=== PATIENT | female | born 1995 | race African-American/Black ===

== ENCOUNTER 2016-06-17 15:01 | Emergency (ER) | payer OTHER ==
[2016-06-17 15:15] VITALS: BP 133/90; BMI 54.6
[2016-06-17] MEDS ORDERED: ZITHROMAX TAB 250 MG PO ONE ×2 (15:47→15:51)
[2016-06-17] MEDS ORDERED: ROCEPHIN VIAL 250 MG IM ONE (15:47)
[2016-06-17] MEDS ORDERED: ROCEPHIN VIAL 250 MG ONE (15:47)
--- NOTE | 2016-06-17 15:47 | DR.GENAD ---
HPI - PCP Primary Care Physician: SANIA - HPI Comment HPI Comment: HISTORY BELOW. - Complaint/Symptoms Chief Complaint Doctors Comments: PATIENT WAS EXPOSUSE TO STD 2 WEEKS AGO. DENIES DISCHARGE OR SORES IN THE GENITAL AREA. HAD UNPROTED SEX WITH A PERSON DIAGNOSE WITH STD. Chief Complaint:: PATIENT STATES THAT SHE WANTS TO BE CHECKED FOR STDs. PATIENT DENIES ANY VAGINAL DISCHARGE OR SORES. - Nurses notes reviewed Nurses Notes Review: Yes - Source History Provided: Patient - Mode of Arrival Mode of Arrival: Ambulatory - Timing Onset of Chief Complaint: 06/17/16 Came on: Suddenly - Duration Duration: Constant Duration: Days PMH - PMH Past Medical History: No Past Surgical History: No - Family History History of Family Medical Conditions: Yes Family Medical History: Diabetes Mellitus, Coronary Artery Disease, Hypertension - Social History Does patient currently use any type of tobacco product: Yes Have you used tobacco products in the last 12 months: Yes Type of Tobacco Use: Cigars Does any household member use tobacco: No Alcohol Use: Occasionally Do you use any recreational Drugs:: No Lives With: Family Lives Where: Home - infectious screening In the last 2 months have you had wt loss of >10#?: NO Have you had fever, night sweats or hemotysis?: No Have you traveled outside the country in the last 6 months?: No Isolation: Standard ROS - Review of Systems Constitutional: No Symptoms Reported Eyes: No Symptoms Reported ENTM: No Symptoms Reported Respiratoy: No Symptoms Reported Cardiovascular: No Symptoms Reported Gastrointestinal/Abdominal: No Symptoms Reported Genitourinary: No Symptoms Reported, Other (EXPOSURE TO STD) Neurological: No Symptoms Reported Musculoskeletal: No Symptoms Reported Integumentary: No Symptoms Reported Hematologic/Lymphatic: No Symptoms Reported Endocrine: No Symptoms Reported All Other Systems: Reviewed and Negative PE - Vital Signs Vitals: Temperature 98.1 F Pulse Rate 81 Respiratory Rate 16 Blood Pressure 133/90 O2 Sat by Pulse Oximetry 100 - General Limitations: No Limitations General Appearance: Alert - Head Head Exam: Normal Inspection - Eyes Eye exam: Normal Appearance - ENT ENT Exam: Normal External Ear Exam External Ear Exam: Normal External Inspection TM/Canal Exam: Bilateral Normal Nose Exam: Normal Nose Exam Mouth Exam: Normal Inspection Throat Exam: Normal Inspection - Neck Neck Exam: Trachea Midline - Chest Chest Inspection: Symmetric Chest Wall Rise - Respiratory Respiratory Exam: Normal Lung Sounds Bilat Respiratory Exam: Bilateral Clear to Auscultation - Cardiovascular Cardiovascular Exam: Regular Rate, Normal Rhythm, Normal Heart Sounds - Abdominal Exam Abdominal Exam: Normal Bowel Sounds, Soft. negative: Tenderness - Extremities Extremities Exam: Normal Inspection - Back Back Exam: Normal Inspection - Neurologic Neurological Exam: Alert, Oriented X3 - Psychiatric Psychiatric Exam: Anxious - Skin Skin Exam: Normal Color MDM - Differential Diagnosis Differential Diagnosis: STD EXPOSURE Course - Treatment Treatment: SEE ORDERS - Education/Counseling Education/Counseling: Patient, Education Educated On: Treatment, Diagnosis, Needs for Follow Up ROR - Labs Reviewed Laboratory Results Reviewed?: Yes Laboratory: Specimen Type Clean catch urine 06/17/16 15:49 Urine Color Yellow (YELLOW) 06/17/16 15:49 Urine Appearance Hazy (CLEAR) 06/17/16 15:49 Urine pH 6.5 (5.0 - 8.0) 06/17/16 15:49 Ur Specific [place] 1.015 (1.000-1.030) 06/17/16 15:49 Urine Protein Negative (NEGATIVE) 06/17/16 15:49 Urine Glucose (UA) Negative (NEGATIVE) 06/17/16 15:49 Urine Ketones Negative (NEGATIVE) 06/17/16 15:49 Urine Occult Blood 1+ (NEGATIVE) 06/17/16 15:49 Urine Nitrite Negative (NEGATIVE) 06/17/16 15:49 Urine Bilirubin Negative (NEGATIVE) 06/17/16 15:49 Urine Urobilinogen Normal (NORMAL) 06/17/16 15:49 Ur Leukocyte Esterase Negative (NEGATIVE) 06/17/16 15:49 Urine RBC 0-2 /HPF (NEGATIVE) 06/17/16 15:49 Urine WBC 0-2 /HPF (NEGATIVE) 06/17/16 15:49 Ur Squamous Epith Cells Rare /HPF (NEGATIVE) 06/17/16 15:49 Urine Bacteria Trace /HPF (NEGATIVE) 06/17/16 15:49 Ur Culture Indicated? No/not indicated 06/17/16 15:49 Ur C. trach DNA (PCR) Not detected (NOT DETECT) 06/17/16 15:49 U N.gonorrhoeae DNA PCR Not detected (NOT DETECT) 06/17/16 15:49 - Diagnosis Discharge Problem: Exposure to STD - Discharge Plan Disposition: 01 HOME, SELF-CARE Condition: Stable - Follow ups/Referrals Follow ups/Referrals: NFD,None [Primary Care Provider] - 3 days - Instructions Instructions: Sexually Transmitted Disease, Yssp-he-Band Additional Instructions: RETURN TO ED IF WORSE.
[2016-06-17 16:11] LABS: BILIRUBIN,URINE NEGATIVE (NEGATIVE); BLOOD/HEMOGLOBIN,URINE 1+ (NEGATIVE); GLUCOSE, URINE NEGATIVE (NEGATIVE); KETONES,URINE NEGATIVE (NEGATIVE); LEUKOCYTE ESTERASE ,URINE NEGATIVE (NEGATIVE); NITRITES,URINE NEGATIVE (NEGATIVE); PH,URINE 6.5 (5.0 - 8.0); PROTEIN,URINE NEGATIVE (NEGATIVE); UROBILINOGEN,URINE NORMAL (NORMAL)
[2016-06-17 16:35] LABS: APPEARANCE,URINE HAZY (CLEAR); COLOR,URINE YELLOW (YELLOW)
[2016-06-17 16:36] LABS: RBC,URINE 0-2 /HPF (NEGATIVE)
[2016-06-17 16:39] LABS: BACTERIA,URINE TRACE /HPF (NEGATIVE); SQUAMOUS EPITHELIAL CELL,UR RARE /HPF (NEGATIVE)
[2016-06-17 17:44] LABS: CHLAMYDIA TRACH URINE NOT DETECTED (NOT DETECT)
== END 2016-06-17 16:45 | disposition home or self-care (01) ==
LOC: ER 15:01
DX: Z20.2 Contact with and (suspected) exposure to infections with a predominantly sexual mode of transmission (principal)
CPT/HCPCS: 81001; 87491; 87591; 96372; 99282; Q0144; J0696

== ENCOUNTER 2016-07-21 22:40 | Emergency (ER) | payer OTHER ==
[2016-07-21 22:44] VITALS: BP 122/72; BMI 54.8
--- NOTE | 2016-07-21 23:04 | ED.ABDFE ---
HPI - Time seen Time seen: 23:00 - PCP Primary Care Physician: nfd - Complaint Chief Complaint Doctors Comments: Patient states that she has had vomiting x3 and diarrhea x3 today, her symptoms started three days ago. Did not go to work today Chief Complaint:: ruq pain and diarrhea for 3 days. couln't work today its so bad. - Source History Provided: Patient - Mode of arrival Mode of Arrival: Ambulatory - Timing Onset of Chief Complaint: 07/21/16 PMH - PMH Past Medical History: No Past Surgical History: No - Family History History of Family Medical Conditions: Yes Family Medical History: Diabetes Mellitus, Coronary Artery Disease, Hypertension - Social History Type of Tobacco Use: Cigarettes Alcohol Use: Occasionally Do you use any recreational Drugs:: No Lives Where: Home - infectious screening Have you traveled outside the country in the last 6 months?: No Isolation: Standard ROS - Review of Systems Constitutional: No Symptoms Reported Eyes: No Symptoms Reported ENTM: No Symptoms Reported Respiratoy: No Symptoms Reported Cardiovascular: No Symptoms Reported Gastrointestinal/Abdominal: Diarrhea, Vomiting Genitourinary: No Symptoms Reported Neurological: No Symptoms Reported Musculoskeletal: No Symptoms Reported Integumentary: No Symptoms Reported Hematologic/Lymphatic: No Symptoms Reported, See HPI Endocrine: No Symptoms Reported Psychiatric: No Symptoms Reported All Other Systems: Reviewed and Negative PE - Vital Signs Vitals: Temperature 98.6 F Pulse Rate 100 Respiratory Rate 16 Blood Pressure 122/72 O2 Sat by Pulse Oximetry 98 - General Limitations: No Limitations General Appearance: Alert, In No Apparent Distress - Head Head Exam: Normal Inspection, Atraumatic - Eyes Eye exam: Normal Appearance, PERRL, EOMI - ENT ENT Exam: Normal Exam - Neck Neck Exam: Normal Inspection, Full ROM - Chest Chest Inspection: Normal Inspection - Respiratory Respiratory Exam: Normal Lung Sounds Bilat Respiratory Exam: Bilateral Clear to Auscultation - Cardiovascular Cardiovascular Exam: Regular Rate, Normal Rhythm - Abdominal Exam Abdominal Exam: Normal Inspection Abdominal Tenderness: negative: RUQ, RLQ, LUQ, LLQ, Epigastrium, Suprapubic, Diffuse, Mild, Moderate, Severe, Other - Rectal Rectal Exam: Deferred - Back Back Exam: Normal Inspection - Extremeties Extremities Exam: Normal Inspection, Normal Capillary Refill - External Exam: Female: Deferred : Speculum Exam (Female): Deferred : Bimanual Exam (female): Deferred - Neurologic Neurological Exam: Alert, Oriented X3, CN II-XII Intact - Psychiatric Psychiatric Exam: Normal Affect - Skin Skin Exam: Warm, Dry, Intact - Diagnosis Discharge Problem: Gastroenteritis - Discharge Plan Condition: Stable - Follow ups/Referrals Follow ups/Referrals: NFD,None [Primary Care Provider] - 3 days - Instructions
== END 2016-07-21 23:17 | disposition home or self-care (01) ==
LOC: ER 22:46
DX: K52.89 Other specified noninfective gastroenteritis and colitis (principal)
CPT/HCPCS: 99281; 99282

== ENCOUNTER 2016-07-28 11:12 | Emergency (ER) | payer OTHER ==
[2016-07-28 11:16] VITALS: BP 138/84; BMI 54.8
--- NOTE | 2016-07-28 11:58 | DR.GENAD ---
HPI - PCP Primary Care Physician: SANIA - HPI Comment HPI Comment: WORSE TODAY. - Complaint/Symptoms Chief Complaint Doctors Comments: FEVER, SORETHROAT AND HEADACHE TIMES 3 DAYS. Chief Complaint:: PT C/O SORE THROAT, H/A, AND FEVER X 3 DAYS - Nurses notes reviewed Nurses Notes Review: Yes - Source History Provided: Patient - Mode of Arrival Mode of Arrival: Ambulatory - Timing Onset of Chief Complaint: 07/25/16 Came on: Suddenly - Duration Duration: Constant Duration: Days - Severity Severity: Moderate PMH - PMH Past Medical History: Yes Past Medical History: Asthma Past Surgical History: No - Family History History of Family Medical Conditions: No Family Medical History: Diabetes Mellitus, Coronary Artery Disease, Hypertension - Social History Does patient currently use any type of tobacco product: Yes Have you used tobacco products in the last 12 months: Yes Type of Tobacco Use: Cigars Does any household member use tobacco: Yes Alcohol Use: None Do you use any recreational Drugs:: No Lives With: Family Lives Where: Home - infectious screening In the last 2 months have you had wt loss of >10#?: NO Have you had fever, night sweats or hemotysis?: No Have you traveled outside the country in the last 6 months?: No Isolation: Standard ROS - Review of Systems Constitutional: Fever Eyes: No Symptoms Reported ENTM: No Symptoms Reported, Throat Pain. negative: Ear Pain, Nose Discharge, Nose Congestion Respiratoy: No Symptoms Reported Cardiovascular: No Symptoms Reported Gastrointestinal/Abdominal: No Symptoms Reported Genitourinary: No Symptoms Reported Neurological: Headache Musculoskeletal: No Symptoms Reported Integumentary: No Symptoms Reported Hematologic/Lymphatic: No Symptoms Reported Endocrine: No Symptoms Reported PE - Vital Signs Vitals: Temperature 99.0 F Pulse Rate 104 Respiratory Rate 20 Blood Pressure 138/84 O2 Sat by Pulse Oximetry 98 - General Limitations: No Limitations General Appearance: Alert - Head Head Exam: Normal Inspection - Eyes Eye exam: Normal Appearance - ENT ENT Exam: Normal External Ear Exam External Ear Exam: Normal External Inspection TM/Canal Exam: Bilateral Normal Nose Exam: Normal Nose Exam Mouth Exam: Normal Inspection Throat Exam: Tonsillar Erythema, Tonsillomegaly. negative: Tonsillar Exudate - Neck Neck Exam: Normal Inspection - Chest Chest Inspection: Normal Inspection - Respiratory Respiratory Exam: Normal Lung Sounds Bilat Respiratory Exam: Bilateral Clear to Auscultation - Cardiovascular Cardiovascular Exam: Regular Rate, Normal Rhythm - Abdominal Exam Abdominal Exam: Normal Inspection - Extremities Extremities Exam: Normal Inspection - Back Back Exam: Normal Inspection - Neurologic Neurological Exam: Alert, Oriented X3 - Psychiatric Psychiatric Exam: Normal Affect, Normal Mood - Skin Skin Exam: Normal Color MDM - Differential Diagnosis Differential Diagnosis: SINUSITIS, PHARYNGITIS Course - Treatment Treatment: SEE ORDERS - Education/Counseling Education/Counseling: Patient, Education Educated On: Diagnosis, Needs for Follow Up ROR - Labs Reviewed Laboratory Results Reviewed?: Yes Laboratory: 07/28/16 11:39 Throat Throat Culture - Preliminary Streptococcus Screen Negative (NEGATIVE) 07/28/16 11:39 - Diagnosis Discharge Problem: Sinusitis, acute Qualifiers: Sinusitis location: unspecified location Recurrence: not specified as recurrent Qualified Code(s): J01.90 - Acute sinusitis, unspecified Pharyngitis Qualifiers: Pharyngitis/tonsillitis etiology: other specified organisms Qualified Code(s): J02.8 - Acute pharyngitis due to other specified organisms - Discharge Plan Disposition: 01 HOME, SELF-CARE Condition: Stable Prescriptions: Amoxicillin [Amoxil 875 mg] 875 mg PO BID #20 tab Ibuprofen [MOTRIN TAB 600 MG *] 600 mg PO TID PRN #20 tab PRN Reason: Pain/Inflammation - Follow ups/Referrals Follow ups/Referrals: NFD,None [Primary Care Provider] - 3 days - Instructions Instructions: Sore Throat, [id number], Sinusitis, Adult, [id number] Additional Instructions: RETURN TO ED IF WORSE.
== END 2016-07-28 12:15 | disposition home or self-care (01) ==
LOC: ER 11:24
DX: J01.80 Other acute sinusitis (principal); J02.8 Acute pharyngitis due to other specified organisms
CPT/HCPCS: 87070; 87880; 99282

== ENCOUNTER 2017-03-15 00:08 | Emergency (ER) | payer OTHER ==
[2017-03-15 00:13] VITALS: BMI 38.5
[2017-03-15] MEDS ORDERED: TORADOL 30 MG VIAL IVP ONE (00:21)
[2017-03-15] MEDS ORDERED: TORADOL 30 MG VIAL ONE (00:25)
--- NOTE | 2017-03-15 00:33 | DR.GENAD ---
HPI - PCP Primary Care Physician: nfd - Complaint/Symptoms Chief Complaint Doctors Comments: Patient admits to generalized body aches, fever, and not feeling well since this morning. She states that she has had vomiting w/o diarrhea. Chief Complaint:: body aches, headache, lips feel numb since this morning Self Treatment fo Chief Complaint: none - Source History Provided: Patient, Family Member, Guardian - Mode of Arrival Mode of Arrival: Ambulatory - Timing Onset of Chief Complaint: 03/13/17 PMH - PMH Past Medical History: Yes Past Medical History: Asthma Past Surgical History: No - Family History History of Family Medical Conditions: Yes Family Medical History: Diabetes Mellitus, Coronary Artery Disease, Hypertension - Social History Type of Tobacco Use: Cigarettes Alcohol Use: None Do you use any recreational Drugs:: No Lives With: Family Lives Where: Home - infectious screening Have you traveled outside the country in the last 6 months?: No Isolation: Standard ROS - Review of Systems Eyes: No Symptoms Reported ENTM: No Symptoms Reported Respiratoy: No Symptoms Reported Cardiovascular: No Symptoms Reported Gastrointestinal/Abdominal: No Symptoms Reported Genitourinary: No Symptoms Reported Neurological: No Symptoms Reported Musculoskeletal: No Symptoms Reported Integumentary: No Symptoms Reported Hematologic/Lymphatic: No Symptoms Reported Endocrine: No Symptoms Reported Psychiatric: No Symptoms Reported All Other Systems: Reviewed and Negative PE - Vital Signs Vitals: Temperature 98.5 F Pulse Rate 82 Respiratory Rate 22 Blood Pressure 130/70 O2 Sat by Pulse Oximetry 96 - General General Appearance: Alert, In No Apparent Distress - Head Head Exam: Normal Inspection, Atraumatic - Eyes Eye exam: Normal Appearance, PERRL, EOMI - ENT ENT Exam: Normal Exam External Ear Exam: Normal External Inspection TM/Canal Exam: Bilateral Normal Nose Exam: Normal Nose Exam Mouth Exam: Normal Inspection Throat Exam: Normal Inspection - Neck Neck Exam: Normal Inspection - Chest Chest Inspection: Normal Inspection - Respiratory Respiratory Exam: Normal Lung Sounds Bilat Respiratory Exam: Bilateral Clear to Auscultation - Cardiovascular Cardiovascular Exam: Regular Rate, Normal Rhythm - Abdominal Exam Abdominal Exam: Normal Inspection, Normal Bowel Sounds Abdominal Tenderness: Suprapubic - Extremities Extremities Exam: Normal Inspection, Full ROM - Back Back Exam: Normal Inspection, Full ROM - Neurologic Neurological Exam: Alert, Oriented X3, CN II-XII Intact - Psychiatric Psychiatric Exam: Normal Affect, Normal Mood - Skin Skin Exam: Warm, Dry, Intact Course - Reevaluation 1st: Improved ROR - Labs Reviewed Result Diagrams: 03/15/17 01:50 03/15/17 01:50 Laboratory: WBC 7.4 X10^3/uL (3.6-10.0) 03/15/17 01:50 RBC 4.49 X10^6/uL (3.5-5.4) 03/15/17 01:50 Hgb 12.5 g/dL (12.0-16.0) 03/15/17 01:50 Hct 37.3 % (36.0-47.0) 03/15/17 01:50 MCV 83.1 fL (80.0-100.0) 03/15/17 01:50 MCH 27.7 pg (27.0-34.0) 03/15/17 01:50 MCHC 33.4 g/dL (33.0-35.0) 03/15/17 01:50 RDW 13.6 % (11.6-16.5) 03/15/17 01:50 Plt Count 274 X10^3/uL (150.0-450.0) 03/15/17 01:50 MPV 7.9 fL (7.4-11.0) 03/15/17 01:50 Neut % 52.2 % (42.0-75.0) 03/15/17 01:50 Lymph % 36.2 % (21.0-51.0) 03/15/17 01:50 [place] % 8.9 % (0.0-13.0) 03/15/17 01:50 Eos % 2.2 % (0.9-2.9) 03/15/17 01:50 Baso % 0.5 % (0.2-1.0) 03/15/17 01:50 Neut # 3.8 x10^3/uL (2.2-4.8) 03/15/17 01:50 Lymph # 2.7 X10^3/uL (1.3-2.9) 03/15/17 01:50 [place] # 0.7 x10^3/uL (0.3-0.8) 03/15/17 01:50 Eos # 0.2 x10^3/uL (0.0-0.2) 03/15/17 01:50 Baso # 0.0 X10^3/uL (0.0-0.1) 03/15/17 01:50 Absolute Nucleated RBC 0.0 /100WBC 03/15/17 01:50 Sodium 143 mmol/L (136-145) 03/15/17 01:50 Corrected Sodium 144 mmol/L (136-145) 03/15/17 01:50 Potassium 3.7 mmol/L (3.5-5.1) 03/15/17 01:50 Chloride 108 mmol/L (98-107) H 03/15/17 01:50 Carbon Dioxide 27.2 mmol/L (21-32) 03/15/17 01:50 BUN 14 mg/dL (7-18) 03/15/17 01:50 Creatinine 0.83 mg/dL (0.55-1.02) 03/15/17 01:50 Est GFR (MDRD) Af Amer > 60 (>60) 03/15/17 01:50 Est GFR (MDRD) Non-Af > 60 (>60) 03/15/17 01:50 Glucose 130 mg/dL (65-99) H 03/15/17 01:50 Calcium 8.1 mg/dL (8.5-10.1) L 03/15/17 01:50 Influenza Type A (PCR) Negative (NEGATIVE) 03/15/17 00:14 Influenza Type B (PCR) Negative (NEGATIVE) 03/15/17 00:14 Streptococcus Screen Negative (NEGATIVE) 03/15/17 00:14 - XRAY XRAY Interpreted by: Radiologist (Chest: There is cardiomegaly with mild increased intersitial markings. Heart size could be accentuated due to technique. There is no pneumothoras or effusion. No consolidation seen.) - Diagnosis Discharge Problem: Influenza-like symptoms - Discharge Plan Condition: Stable - Follow ups/Referrals Follow ups/Referrals: NFD,None [Primary Care Provider] - 3 days - Instructions
[2017-03-15] MEDS ORDERED: NS 1000 ML 1,000 ML IV ONE ×2 (00:38→01:43)
[2017-03-15] MEDS ORDERED: NS 1000 ML 1,000 ML ONE ×2 (00:41→01:41)
[2017-03-15] MEDS ORDERED: ZOFRAN INJ 4 MG VIAL IVP ONE (00:59)
[2017-03-15] MEDS ORDERED: ZOFRAN INJ 4 MG VIAL ONE (01:00)
[2017-03-15] MEDS ORDERED: PHENERGAN INJ 25 MG ONE (01:40)
[2017-03-15] MEDS ORDERED: PHENERGAN INJ 25 MG IV ONE (01:42)
[2017-03-15 01:58] LABS: BASOPHILS % (AUTO) 0.5 % (0.2-1.0); EOSINOPHILS # (AUTO) 0.2 x10^3/uL (0.0-0.2); EOSINOPHILS % (AUTO) 2.2 % (0.9-2.9); HEMATOCRIT 37.3 % (36.0-47.0); HEMOGLOBIN 12.5 g/dL (12.0-16.0); LYMPHOCYTES # (AUTO) 2.7 X10^3/uL (1.3-2.9); LYMPHOCYTES % (AUTO) 36.2 % (21.0-51.0); MEAN CORPUSCULAR HEMOGLOBIN 27.7 pg (27.0-34.0); MEAN CORPUSCULAR HGB CONC 33.4 g/dL (33.0-35.0); MEAN CORPUSCULAR VOLUME 83.1 fL (80.0-100.0); MEAN PLATELET VOLUME 7.9 fL (7.4-11.0); MONOCYTES # (AUTO) 0.7 x10^3/uL (0.3-0.8); MONOCYTES % (AUTO) 8.9 % (0.0-13.0); NEUTROPHILS # (AUTO) 3.8 x10^3/uL (2.2-4.8); NEUTROPHILS % (AUTO) 52.2 % (42.0-75.0); PLATELET COUNT 274 X10^3/uL (150.0-450.0); RED BLOOD COUNT 4.49 X10^6/uL (3.5-5.4); RED CELL DISTRIBUTION WIDTH 13.6 % (11.6-16.5); WHITE BLOOD COUNT 7.4 X10^3/uL (3.6-10.0)
[2017-03-15 02:12] LABS: BLOOD UREA NITROGEN 14 mg/dL (7-18); CALCIUM 8.1 mg/dL (8.5-10.1); CARBON DIOXIDE 27.2 mmol/L (21-32); CHLORIDE 108 mmol/L (98-107); COR NA(FOR HYPERGLY) 144 mmol/L (136-145); CREATININE 0.83 mg/dL (0.55-1.02); SODIUM 143 mmol/L (136-145); eGFR BLACK RACES > 60 (>60); eGFR NON BLACK RACES > 60 (>60)
--- NOTE | 2017-03-15 04:01 | RAD ---
Chest AP portable Indication: Body aches. Lip numbness. Findings: There is cardiomegaly with mild increased interstitial markings. Heart size could be accent uated due to technique. There is no pneumothorax or effusion. No consolidation seen. Impression: Position limited study suggesting cardiomegaly. No severe edema seen but early edema is p ossible. The findings could in part be due to body habitus and position. PA and lateral chest follow- up recommended to clarify. Reported By:
[2017-03-15 05:38] VITALS: BP 134/82
== END 2017-03-15 05:38 | disposition home or self-care (01) ==
LOC: ER 00:08
DX: J11.1 Influenza due to unidentified influenza virus with other respiratory manifestations (principal)
CPT/HCPCS: 36415; 71010; 80048; 85025; 87070; 87502; 87880; 96365; 96367; 96374; 96375; 99283; A4222; J1885; J2405; J2550

== ENCOUNTER 2017-03-19 05:56 | Emergency (ER) | payer OTHER ==
[2017-03-19 06:04] VITALS: BP 140/87; BMI 56.5
--- NOTE | 2017-03-19 06:15 | DR.GENAD ---
HPI - PCP Primary Care Physician: NFD - Complaint/Symptoms Chief Complaint Doctors Comments: Patient states that he has a left frontal headache, onset last night took ibuprofen 400mg. The headache is sharp throbbing , onset one day, not aggravated by anything in particular, level 7/10.She denies n/v/d. Patient was seen in the ED four days ago diagnosed with influenza -like illness. Chief Complaint:: HEADACHE Self Treatment fo Chief Complaint: IBUPROFEN LAST NIGHT - Source History Provided: Patient - Mode of Arrival Mode of Arrival: Ambulatory - Timing Onset of Chief Complaint: 03/14/15 PMH - PMH Past Medical History: Yes Past Medical History: Asthma, Hypertension Past Surgical History: No - Family History History of Family Medical Conditions: Yes Family Medical History: Hypertension - Social History Does patient currently use any type of tobacco product: Yes Have you used tobacco products in the last 12 months: Yes Type of Tobacco Use: Cigarettes Does any household member use tobacco: No Alcohol Use: Occasionally Do you use any recreational Drugs:: No Lives With: Family Lives Where: Home - infectious screening In the last 2 months have you had wt loss of >10#?: NO Have you had fever, night sweats or hemotysis?: No Have you traveled outside the country in the last 6 months?: No Isolation: Standard ROS - Review of Systems Eyes: No Symptoms Reported ENTM: No Symptoms Reported Respiratoy: No Symptoms Reported Cardiovascular: No Symptoms Reported Gastrointestinal/Abdominal: No Symptoms Reported Genitourinary: No Symptoms Reported Neurological: No Symptoms Reported Musculoskeletal: No Symptoms Reported Integumentary: No Symptoms Reported Hematologic/Lymphatic: No Symptoms Reported Endocrine: No Symptoms Reported Psychiatric: No Symptoms Reported All Other Systems: Reviewed and Negative PE - Vital Signs Vitals: Temperature 97.4 F Pulse Rate 72 Respiratory Rate 18 Blood Pressure [Right Arm] 134/82 Blood Pressure 140/87 O2 Sat by Pulse Oximetry 98 - General General Appearance: Alert - Head Head Exam: Normal Inspection, Atraumatic - Eyes Eye exam: Normal Appearance, PERRL, EOMI - ENT ENT Exam: Normal Exam External Ear Exam: Normal External Inspection TM/Canal Exam: Bilateral Normal Nose Exam: Normal Nose Exam Mouth Exam: Normal Inspection Throat Exam: Normal Inspection - Neck Neck Exam: Normal Inspection, Full ROM - Chest Chest Inspection: Normal Inspection, Symmetric Chest Wall Rise - Respiratory Respiratory Exam: Normal Lung Sounds Bilat Respiratory Exam: Bilateral Clear to Auscultation - Cardiovascular Cardiovascular Exam: Regular Rate, Normal Rhythm - Abdominal Exam Abdominal Exam: Normal Inspection Abdominal Tenderness: negative: RUQ, RLQ, LUQ, LLQ, Epigastrium, Suprapubic, Diffuse, Mild, Moderate, Severe, Other - Extremities Extremities Exam: Normal Inspection, Full ROM - Back Back Exam: Normal Inspection, Full ROM - Neurologic Neurological Exam: Alert, Oriented X3, CN II-XII Intact - Psychiatric Psychiatric Exam: Normal Affect - Skin Skin Exam: Intact Course - Treatment Treatment: visual acuity 20/40 OS, 20/30 OD - Reevaluation 1st: Improved - Education/Counseling Educated On: Treatment, Diagnosis, Prognosis, Needs for Follow Up - Diagnosis Discharge Problem: Visual acuity 20/40, Headache above the eye region - Discharge Plan Condition: Stable - Follow ups/Referrals Follow ups/Referrals: NFD,None [Primary Care Provider] - 3 days - Instructions
[2017-03-19] MEDS ORDERED: TORADOL 60 MG VIAL IM ONE (06:16)
[2017-03-19] MEDS ORDERED: TORADOL 60 MG VIAL ONE (06:19)
== END 2017-03-19 06:50 | disposition home or self-care (01) ==
LOC: ER 06:06
DX: R51 Headache (principal); H54.40 Blindness, one eye, unspecified eye
CPT/HCPCS: 96372; 99282; J1885

== ENCOUNTER 2017-03-24 07:39 | Emergency (ER) | payer OTHER ==
[2017-03-24 07:54] VITALS: BP 152/72; BMI 56.5
[2017-03-24] MEDS ORDERED: TORADOL 60 MG VIAL IM ONE (08:55)
--- NOTE | 2017-03-24 08:58 | DR.GENAD ---
HPI - PCP Primary Care Physician: none - Complaint/Symptoms Chief Complaint Doctors Comments: Patient was seen on 03/15 for infulenza like symptoms w/u negative medicated with ibuprofen; she was seen again on 03/19 for headache medicatied again with ibuprofen with a normal exam except for visual acuity abnormality. Today she complaines of headache, epistaxis and numbness of her left arm. Chief Complaint:: "head hurting for two week, nose has been bleeding, and n/v" - Source History Provided: Patient - Mode of Arrival Mode of Arrival: EMS - Timing Onset of Chief Complaint: 03/10/17 PMH - PMH Past Medical History: Yes Past Medical History: Asthma Past Surgical History: No - Family History History of Family Medical Conditions: Yes Family Medical History: Diabetes Mellitus, Cancer, Hypertension - Social History Does patient currently use any type of tobacco product: Yes Have you used tobacco products in the last 12 months: Yes Type of Tobacco Use: Cigarettes How many years tobacco product used: 1 Does any household member use tobacco: No Alcohol Use: Occasionally Do you use any recreational Drugs:: No Lives With: Family Lives Where: Home - infectious screening In the last 2 months have you had wt loss of >10#?: NO Have you had fever, night sweats or hemotysis?: No Have you traveled outside the country in the last 6 months?: No Isolation: Standard ROS - Review of Systems Constitutional: negative: No Symptoms Reported Eyes: No Symptoms Reported ENTM: Epistaxis Respiratoy: No Symptoms Reported Cardiovascular: No Symptoms Reported Gastrointestinal/Abdominal: No Symptoms Reported Genitourinary: No Symptoms Reported Neurological: Headache Musculoskeletal: No Symptoms Reported Integumentary: No Symptoms Reported Hematologic/Lymphatic: No Symptoms Reported Endocrine: No Symptoms Reported Psychiatric: No Symptoms Reported All Other Systems: Reviewed and Negative PE - Vital Signs Vitals: Temperature 97 F Pulse Rate 72 Respiratory Rate 18 Blood Pressure [Right Arm] 134/82 Blood Pressure 152/72 O2 Sat by Pulse Oximetry 98 - General General Appearance: Alert, In No Apparent Distress - Head Head Exam: Normal Inspection, Atraumatic, Normocephalic - Eyes Eye exam: Normal Appearance, PERRL, EOMI - ENT ENT Exam: Normal Oropharynx, TM's Normal Bilaterally External Ear Exam: Normal External Inspection TM/Canal Exam: Bilateral Normal Nose Exam: Normal Nose Exam, Other (negative for blood) Mouth Exam: Normal Inspection Throat Exam: Normal Inspection - Neck Neck Exam: Normal Inspection, Full ROM - Chest Chest Inspection: Normal Inspection, Symmetric Chest Wall Rise - Respiratory Respiratory Exam: Normal Lung Sounds Bilat Respiratory Exam: Bilateral Clear to Auscultation - Cardiovascular Cardiovascular Exam: Regular Rate, Normal Rhythm - Abdominal Exam Abdominal Exam: Normal Inspection, Normal Bowel Sounds Abdominal Tenderness: negative: RUQ, RLQ, LUQ, LLQ, Epigastrium, Suprapubic, Diffuse, Mild, Moderate, Severe, Other - Extremities Extremities Exam: Normal Inspection, Full ROM - Back Back Exam: Normal Inspection - Neurologic Neurological Exam: Alert, Oriented X3, CN II-XII Intact - Psychiatric Psychiatric Exam: Normal Affect, Normal Mood - Skin Skin Exam: Warm, Dry, Intact Course - Education/Counseling Educated On: Treatment, Diagnosis, Prognosis, Needs for Follow Up ROR - Labs Reviewed Result Diagrams: 03/24/17 09:11 03/24/17 09:11 Laboratory: WBC 7.3 X10^3/uL (3.6-10.0) 03/24/17 09:11 RBC 4.96 X10^6/uL (3.5-5.4) 03/24/17 09:11 Hgb 13.8 g/dL (12.0-16.0) 03/24/17 09:11 Hct 40.9 % (36.0-47.0) 03/24/17 09:11 MCV 82.4 fL (80.0-100.0) 03/24/17 09:11 MCH 27.9 pg (27.0-34.0) 03/24/17 09:11 MCHC 33.8 g/dL (33.0-35.0) 03/24/17 09:11 RDW 13.9 % (11.6-16.5) 03/24/17 09:11 Plt Count 270 X10^3/uL (150.0-450.0) 03/24/17 09:11 MPV 7.8 fL (7.4-11.0) 03/24/17 09:11 Neut % 75.9 % (42.0-75.0) H 03/24/17 09:11 Lymph % 16.9 % (21.0-51.0) L 03/24/17 09:11 [place] % 6.1 % (0.0-13.0) 03/24/17 09:11 Eos % 0.5 % (0.9-2.9) L 03/24/17 09:11 Baso % 0.6 % (0.2-1.0) 03/24/17 09:11 Neut # 5.5 x10^3/uL (2.2-4.8) H 03/24/17 09:11 Lymph # 1.2 X10^3/uL (1.3-2.9) L 03/24/17 09:11 [place] # 0.4 x10^3/uL (0.3-0.8) 03/24/17 09:11 Eos # 0.0 x10^3/uL (0.0-0.2) 03/24/17 09:11 Baso # 0.0 X10^3/uL (0.0-0.1) 03/24/17 09:11 Absolute Nucleated RBC 0.1 /100WBC 03/24/17 09:11 Sodium 139 mmol/L (136-145) 03/24/17 09:11 Corrected Sodium 139 mmol/L (136-145) 03/24/17 09:11 Potassium 4.1 mmol/L (3.5-5.1) 03/24/17 09:11 Chloride 103 mmol/L (98-107) 03/24/17 09:11 Carbon Dioxide 28.5 mmol/L (21-32) 03/24/17 09:11 BUN 13 mg/dL (7-18) 03/24/17 09:11 Creatinine 0.87 mg/dL (0.55-1.02) 03/24/17 09:11 Est GFR (MDRD) Af Amer > 60 (>60) 03/24/17 09:11 Est GFR (MDRD) Non-Af > 60 (>60) 03/24/17 09:11 Glucose 112 mg/dL (65-99) H 03/24/17 09:11 Calcium 9.0 mg/dL (8.5-10.1) 03/24/17 09:11 Corrected Calcium TNP 03/24/17 09:11 Total Bilirubin 0.20 mg/dL (0.2-1.0) 03/24/17 09:11 AST 17 Units/L (15-37) 03/24/17 09:11 ALT 21 Units/L (12-78) 03/24/17 09:11 Alkaline Phosphatase 78 Units/L (46-116) 03/24/17 09:11 C-Reactive Protein 16.40 mg/L (0-3.0) H 03/24/17 09:11 Total Protein 8.5 g/dL (6.4-8.2) H 03/24/17 09:11 Albumin 3.7 g/dL (3.4-5.0) 03/24/17 09:11 Globulin 4.8 g/dL (2.5-4.5) H 03/24/17 09:11 Albumin/Globulin Ratio 0.8 Ratio (1.1-2.1) L 03/24/17 09:11 - XRAY XRAY Interpreted by: Radiologist (CT Sinuses: Sinus disease with complete opacification of the right frontoethmoid junction. Minimal to mild mucosal thickening is noted in the lfet maxillary sinus measuring 1-2 mm in maximum thickness. There is a tiny polp in the superior aspect of the right maxillary sinus near the ostiomeatal opening. There appears to be a very large caries involving a posterior mandibular molar on the right. There is mild focal bone loss around the roots suggesting the possibliity of a periodontal abscess..Impression: Sinus disease with complete occlusion of the right frontoethmoid junction. There is dental disease present with what appars to be a large caries involving a posterior molar on the right within the mandible. There may be a small periapical abscess as well.) - Diagnosis Discharge Problem: large caries involving posterior molar Ethmoidal sinusitis Qualifiers: Chronicity: subacute Qualified Code(s): J01.20 - Acute ethmoidal sinusitis, unspecified - Discharge Plan Condition: Stable - Follow ups/Referrals Follow ups/Referrals: NFD,None [Primary Care Provider] - 3 days - Instructions
[2017-03-24] MEDS ORDERED: TORADOL 60 MG VIAL ONE (09:02)
[2017-03-24 09:20] LABS: BASOPHILS % (AUTO) 0.6 % (0.2-1.0); EOSINOPHILS % (AUTO) 0.5 % (0.9-2.9); HEMATOCRIT 40.9 % (36.0-47.0); HEMOGLOBIN 13.8 g/dL (12.0-16.0); LYMPHOCYTES # (AUTO) 1.2 X10^3/uL (1.3-2.9); LYMPHOCYTES % (AUTO) 16.9 % (21.0-51.0); MEAN CORPUSCULAR HEMOGLOBIN 27.9 pg (27.0-34.0); MEAN CORPUSCULAR HGB CONC 33.8 g/dL (33.0-35.0); MEAN CORPUSCULAR VOLUME 82.4 fL (80.0-100.0); MEAN PLATELET VOLUME 7.8 fL (7.4-11.0); MONOCYTES # (AUTO) 0.4 x10^3/uL (0.3-0.8); MONOCYTES % (AUTO) 6.1 % (0.0-13.0); NEUTROPHILS # (AUTO) 5.5 x10^3/uL (2.2-4.8); NEUTROPHILS % (AUTO) 75.9 % (42.0-75.0); PLATELET COUNT 270 X10^3/uL (150.0-450.0); RED BLOOD COUNT 4.96 X10^6/uL (3.5-5.4); RED CELL DISTRIBUTION WIDTH 13.9 % (11.6-16.5); WHITE BLOOD COUNT 7.3 X10^3/uL (3.6-10.0)
[2017-03-24 09:30] LABS: ALANINE AMINOTRANSFERASE 21 Units/L (12-78); ALBUMIN 3.7 g/dL (3.4-5.0); ALKALINE PHOSPHATASE 78 Units/L (46-116); ASPARTATE AMINO TRANSFERASE 17 Units/L (15-37); BLOOD UREA NITROGEN 13 mg/dL (7-18); CARBON DIOXIDE 28.5 mmol/L (21-32); CHLORIDE 103 mmol/L (98-107); COR NA(FOR HYPERGLY) 139 mmol/L (136-145); CREATININE 0.87 mg/dL (0.55-1.02); SODIUM 139 mmol/L (136-145); TOTAL PROTEIN 8.5 g/dL (6.4-8.2); eGFR BLACK RACES > 60 (>60); eGFR NON BLACK RACES > 60 (>60)
--- NOTE | 2017-03-24 10:42 | CT ---
HISTORY: Frontal headaches for 3 months. No known trauma. Study: Computed tomography of the sinuses: Multiple axial images were obtained throughout the paran carmen sinuses. Sagittal and coronal reconstructions performed. Radiation dose reduction techniques u tilized. Comparison: None Findings: The frontal sinuses are small. The right frontal sinus shows mild mucosal thickening measuring up to 3-4 mm. There is complete opacification of the right frontoethmoid junction. The left frontal sinu s is clear. There is minimal mucosal thickening in a few ethmoid air cells. The sphenoid sinus is c lear. Minimal to mild mucosal thickening is noted in the left maxillary sinus measuring 1-2 mm in ma ximum thickness. There is a tiny polyp in the superior aspect of the right maxillary sinus near the ostiomeatal opening, otherwise the right maxillary sinus is clear. This polyp measures approximately 3 mm in maximum dimension. There appears to be a very large caries involving a posterior mandibular molar on the right. There i s mild focal bone loss around the roots suggesting the possibility of a periodontal abscess. Clinica l correlation is recommended. There appear to be other caries present. The mastoids are free of flu id. The external auditory canals are clear. The IAC's are symmetric. The nasal septum is essentially midline. The ostiomeatal units are asymmetric. The ostiomeatal unit on the right is patent . It is occluded on the left. The nasal turbinates appear to be minimally edematous. The visualized intracranial structures are normal. The visualized orbits are normal. The parotid gl ands are normal. I see no definite evidence of adenopathy. The pituitary fossa is of normal size. IMPRESSION: 1. Sinus disease as described above with complete occlusion of the right frontoethmoid junction. 2. There is dental disease present with what appears to be a large caries involving a posterior mola r on the right within the mandible. There may be a small periapical abscess as well. Reported By:
== END 2017-03-24 11:29 | disposition home or self-care (01) ==
LOC: ER 07:44
DX: K02.9 Dental caries, unspecified (principal); J01.80 Other acute sinusitis
CPT/HCPCS: 36415; 70486; 80053; 85025; 86140; 96372; 99282; J1885

== ENCOUNTER 2021-06-21 12:48 | Observation (INO) ==
[2021-06-21] MEDS ORDERED: ZOFRAN INJ 4 MG VIAL ONE (13:31)
[2021-06-21] MEDS ORDERED: ZOFRAN INJ 4 MG VIAL IVP ONE (13:37)
[2021-06-21 15:02] LABS: BASOPHILS % (AUTO) 0.6 % (0.2-1.0); EOSINOPHILS # (AUTO) 0.1 x10^3/uL (0.0-0.2); EOSINOPHILS % (AUTO) 1.6 % (0.9-2.9); HEMATOCRIT 41.7 % (36.0-47.0); HEMOGLOBIN 13.8 g/dL (12.0-16.0); LYMPHOCYTES # (AUTO) 2.6 X10^3/uL (1.3-2.9); LYMPHOCYTES % (AUTO) 34.4 % (21.0-51.0); MEAN CORPUSCULAR HEMOGLOBIN 25.9 pg (27.0-34.0); MEAN CORPUSCULAR HGB CONC 32.9 g/dL (33.0-35.0); MEAN CORPUSCULAR VOLUME 78.7 fL (80.0-100.0); MEAN PLATELET VOLUME 9.7 fL (7.4-11.0); MONOCYTES # (AUTO) 0.7 x10^3/uL (0.3-0.8); MONOCYTES % (AUTO) 9.2 % (0.0-13.0); NEUTROPHILS # (AUTO) 4.1 x10^3/uL (2.2-4.8); NEUTROPHILS % (AUTO) 54.2 % (42.0-75.0); RED BLOOD COUNT 5.31 X10^6/uL (3.5-5.4); RED CELL DISTRIBUTION WIDTH 15.7 % (11.6-16.5); WHITE BLOOD COUNT 7.6 X10^3/uL (3.6-10.0)
[2021-06-21] MEDS ORDERED: NovoLIN R (or HumuLIN R) SUBCUT ONE (15:44)
[2021-06-21] MEDS ORDERED: NovoLIN R (or HumuLIN R) ONE (15:47)
[2021-06-21 16:08] LABS: ALANINE AMINOTRANSFERASE 39 Units/L (12-78); ALKALINE PHOSPHATASE 107 Units/L (46-116); ASPARTATE AMINO TRANSFERASE 42 Units/L (15-37); BLOOD UREA NITROGEN 9 mg/dL (7-18); CALCIUM 8.4 mg/dL (8.5-10.1); CARBON DIOXIDE 22.6 mmol/L (21-32); CHLORIDE 101 mmol/L (98-107); COR CA(FOR HYPOALB) 9.2 mg/dL (8.5-10.1); COR NA(FOR HYPERGLY) 140 mmol/L (136-145); CREATININE 1.02 mg/dL (0.55-1.02); SODIUM 135 mmol/L (136-145); TOTAL PROTEIN 7.4 g/dL (6.4-8.2); eGFR NON BLACK RACES > 60 (>60)
[2021-06-21 16:20] LABS: CKMB % 0.1 % (<4); CREATINE KINASE 918 Units/L (26-192); CREATINE KINASE MB < 1.0 ng/mL (0-4.0)
--- NOTE | 2021-06-21 18:17 | DR.GENAD ---
HPI Time Seen Time Seen by Provider: 06/21/21 18:11 PCP Primary Care Physician: DR ANTONIO HPI Comment HPI Comment: According to pt she was diagnosed with new onset of DM .was started on metformin 500 mg 2 xper day .was noted to have blood sugar over 500.admitted to hospital at [place].Was discharged yesterday .Pt has noted that her blood sugar has been still running high .she has not been feeling well .here to have herself checked Complaint/Symptoms Chief Complaint Doctors Comments: NOT FEELING WELL Chief Complaint:: PT WAS RECENTLY ADMITTED IN [facility] WITH DKA AND HEART PROBLEMS. SHE WAS DISCHARGED ON WEDNESDAY AND SINCE THEN SHE HAS HAD DIZZINESS, SHORTNESS OF BREATH, VOMITING, AND WEAKNESS. COVID-19 Coronavirus risk:travel/contact w/high risk person: No Has patient experienced Coronavirus symptoms: No Nurses notes reviewed Nurses Notes Review: Yes Source History Provided: Patient Mode of Arrival Mode of Arrival: Ambulatory Timing Onset of Chief Complaint: 06/21/21 Came on: Gradually Duration Duration: Since Onset Duration: Days Severity Severity: Moderate Modifying Factors Worsens:: with dep breath PMH PMH Past Medical History: Yes Past Medical History: Diabetes Past Surgical History: No Surgical History: No History Family History History of Family Medical Conditions: Yes Family Medical History: Diabetes Mellitus Family Medical History Comment: KIDNEY FAILURE Social History Does patient currently use any type of tobacco product: No Have you used tobacco products in the last 12 months: No Type of Tobacco Use: None Does any household member use tobacco: No Alcohol Use: None Do you use any recreational Drugs:: No Lives With: Family Lives Where: Home Travel Risk Coronavirus risk:travel/contact w/high risk person: No Has patient experienced Coronavirus symptoms: No Infectious screening In the last 2 months have you had wt loss of >10#?: NO Have you had fever, night sweats or hemotysis?: No Have you traveled outside the country in the last 6 months?: No Isolation: Standard ROS Review of Systems Constitutional: Fatigue Eyes: No Symptoms Reported ENTM: No Symptoms Reported Respiratoy: No Symptoms Reported Cardiovascular: No Symptoms Reported Gastrointestinal/Abdominal: Nausea Neurological: No Symptoms Reported Musculoskeletal: No Symptoms Reported Integumentary: No Symptoms Reported Endocrine: Increased Thirst Psychiatric: No Symptoms Reported PE Vital Signs Vitals: Temperature 98.1 F Pulse Rate 83 Respiratory Rate 28 Blood Pressure [Right Arm] 135/78 Blood Pressure 138/79 O2 Sat by Pulse Oximetry 98 General Limitations: No Limitations General Appearance: Alert and Obese Head Head Exam: Normal Inspection, Atraumatic and Normocephalic Eyes Eye exam: Normal Appearance and PERRL ENT ENT Exam: Mucous Membranes Dry External Ear Exam: Normal External Inspection Neck Neck Exam: Normal Inspection and Full ROM Chest Chest Inspection: Normal Inspection, Symmetric Chest Wall Rise and Tenderness Respiratory Respiratory Exam: Normal Lung Sounds Bilat Respiratory Exam: Bilateral: Clear to Auscultation Cardiovascular Cardiovascular Exam: +S1 and +S2 Abdominal Exam Abdominal Exam: Normal Inspection, Normal Bowel Sounds and Soft Extremities Extremities Exam: Normal Inspection and Full ROM Neurologic Neurological Exam: Alert and Oriented X3 Skin Skin Exam: Normal Color MDM Additional Information Findings: uncontrolled DM type2 ,dehydration chest wall tenderness COURSE Treatment Treatment: labs ,iv fluids ,insulin ROR Labs Reviewed Laboratory Results Reviewed?: Yes Result Diagrams: 06/21/21 13:30 06/21/21 13:30 Laboratory: WBC 7.6 X10^3/uL (3.6-10.0) 06/21/21 13:30 RBC 5.31 X10^6/uL (3.5-5.4) 06/21/21 13:30 Hgb 13.8 g/dL (12.0-16.0) 06/21/21 13:30 Hct 41.7 % (36.0-47.0) 06/21/21 13:30 MCV 78.7 fL (80.0-100.0) L 06/21/21 13:30 MCH 25.9 pg (27.0-34.0) L 06/21/21 13:30 MCHC 32.9 g/dL (33.0-35.0) L 06/21/21 13:30 RDW 15.7 % (11.6-16.5) 06/21/21 13:30 Plt Count 246 X10^3/uL (150.0-450.0) 06/21/21 13:30 MPV 9.7 fL (7.4-11.0) 06/21/21 13:30 Neut % (Auto) 54.2 % (42.0-75.0) 06/21/21 13:30 Lymph % (Auto) 34.4 % (21.0-51.0) 06/21/21 13:30 [place] % (Auto) 9.2 % (0.0-13.0) 06/21/21 13:30 Eos % (Auto) 1.6 % (0.9-2.9) 06/21/21 13:30 Baso % (Auto) 0.6 % (0.2-1.0) 06/21/21 13:30 Neut # (Auto) 4.1 x10^3/uL (2.2-4.8) 06/21/21 13:30 Lymph # (Auto) 2.6 X10^3/uL (1.3-2.9) 06/21/21 13:30 [place] # (Auto) 0.7 x10^3/uL (0.3-0.8) 06/21/21 13:30 Eos # (Auto) 0.1 x10^3/uL (0.0-0.2) 06/21/21 13:30 Baso # (Auto) 0.0 X10^3/uL (0.0-0.1) 06/21/21 13:30 Absolute Nucleated RBC 0.1 /100WBC 06/21/21 13:30 Sodium 135 mmol/L (136-145) L 06/21/21 13:30 Corrected Sodium 140 mmol/L (136-145) 06/21/21 13:30 Potassium 4.1 mmol/L (3.5-5.1) 06/21/21 13:30 Chloride 101 mmol/L (98-107) 06/21/21 13:30 Carbon Dioxide 22.6 mmol/L (21-32) 06/21/21 13:30 BUN 9 mg/dL (7-18) 06/21/21 13:30 Creatinine 1.02 mg/dL (0.55-1.02) 06/21/21 13:30 Est GFR (MDRD) Af Amer > 60 (>60) 06/21/21 13:30 Est GFR (MDRD) Non-Af > 60 (>60) 06/21/21 13:30 Glucose 323 mg/dL (65-99) H 06/21/21 13:30 POC Glucose (mg/dL) 222 mg/dL (65-99) H 06/21/21 17:45 Calcium 8.4 mg/dL (8.5-10.1) L 06/21/21 13:30 Corrected Calcium 9.2 mg/dL (8.5-10.1) 06/21/21 13:30 Total Bilirubin 0.50 mg/dL (0.2-1.0) 06/21/21 13:30 AST 42 Units/L (15-37) H 06/21/21 13:30 ALT 39 Units/L (12-78) 06/21/21 13:30 Alkaline Phosphatase 107 Units/L (46-116) 06/21/21 13:30 Creatine Kinase 918 Units/L (26-192) H 06/21/21 15:54 CK-MB (CK-2) < 1.0 ng/mL (0-4.0) 06/21/21 15:54 CK/CKMB % Calc 0.1 % (<4) 06/21/21 15:54 Troponin I High Sens 11.5 ng/L (4.0-60.0) 06/21/21 15:54 Total Protein 7.4 g/dL (6.4-8.2) 06/21/21 13:30 Albumin 3.0 g/dL (3.4-5.0) L 06/21/21 13:30 Globulin 4.4 g/dL (2.5-4.5) 06/21/21 13:30 Albumin/Globulin Ratio 0.7 Ratio (1.1-2.1) L 06/21/21 13:30 SARS CoV-2 RNA Rapid [place] Negative (NEGATIVE) 06/21/21 17:47 Opioid Opioid Risk Tool Age ([place] if 16-45): Yes History of Preadolescent Sexual Abuse: No Total: 1 Total Score Risk Category: Low Risk Copyright: [facility] predicting aberrant behaviors Diagnosis Discharge Problem: Morbid obesity, Dehydration Uncontrolled diabetes mellitus Qualifiers: Diabetes mellitus type: type 2 Glycemic state: with hyperglycemia Qualified Code(s): E11.65 - Type 2 diabetes mellitus with hyperglycemia Rhabdomyolysis Qualifiers: Rhabdomyolysis type: non-traumatic Qualified Code(s): M62.82 - Rhabdomyolysis Instructions Forms: [facility] Patient Portal Social Distancing
[2021-06-21] MEDS ORDERED: NS 1,000 ML IV 1,000 ML ONE (18:26)
[2021-06-21] MEDS ORDERED: NS 1,000 ML IV 1,000 ML IV ONE ×2 (18:31→23:05)
[2021-06-21] MEDS: SNACK - Diabetic Appropriate PO SCH (23:56)
[2021-06-21] MEDS: LANTUS SC SCH (23:58)
[2021-06-22] MEDS ORDERED: GLUCOPHAGE ONE ×2 (06:02→16:17)
[2021-06-22] MEDS: GLUCOPHAGE PO SCH ×2 (06:13→16:20)
[2021-06-22] MEDS: NovoLIN R (or HumuLIN R) SC PRN ×4 (06:13→23:36)
[2021-06-22 10:11] VITALS: BMI 65.0
--- NOTE | 2021-06-22 15:48 | DR.H&P ---
H&P History & Physical for Day of: H&P Date: 06/21/21 Chief Complaint Chief Complaint: Not feeling well. Allergies Allergies Allergy/AdvReac Type Severity Reaction Status Date / Time carbinoxamine [From Rondec] Allergy Verified 03/25/19 17: pseudoephedrine [From Rondec] Allergy Verified 03/25/19 17: History of Present Illness History of Present Illness: This is a pleasant 26-year-old black female who presents to the emergency department for not feeling well. She was diagnosed on June 03 of this month with diabetes mellitus type 2. She was started on metformin 500 mg by mouth twice a day. [facility] sugar greater than 300. It is also noted she has some mild rhabdomyolysis as well. She did also recently get out of the hospital here a few days ago. On admission the ER physician and myself discussed increasing her metformin 1000 mg by mouth twice a day so we did. We also added some Lantus as well. Past Medical History Past Medical History: Diabetes Past Surgical History Surgical History: No History Family History Family Medical History: Diabetes Mellitus, Cancer and Hypertension Social History Does patient currently use any type of tobacco product: No Have you used tobacco products in the last 12 months: No Type of Tobacco Use: None Does any household member use tobacco: No Alcohol Use: None Drug Use: None Medications Home Medications: carbinoxamine [From Rondec] Allergy (Verified 03/25/19 17:27) pseudoephedrine [From Rondec] Allergy (Verified 03/25/19 17:27) Labs Result Diagrams: 06/21/21 13:30 06/21/21 13:30 Labs: Laboratory WBC 7.6 X10^3/uL (3.6-10.0) 06/21/21 13:30 RBC 5.31 X10^6/uL (3.5-5.4) 06/21/21 13:30 Hgb 13.8 g/dL (12.0-16.0) 06/21/21 13:30 Hct 41.7 % (36.0-47.0) 06/21/21 13:30 MCV 78.7 fL (80.0-100.0) L 06/21/21 13:30 MCH 25.9 pg (27.0-34.0) L 06/21/21 13:30 MCHC 32.9 g/dL (33.0-35.0) L 06/21/21 13:30 RDW 15.7 % (11.6-16.5) 06/21/21 13:30 Plt Count 246 X10^3/uL (150.0-450.0) 06/21/21 13:30 MPV 9.7 fL (7.4-11.0) 06/21/21 13:30 Neut % (Auto) 54.2 % (42.0-75.0) 06/21/21 13:30 Lymph % (Auto) 34.4 % (21.0-51.0) 06/21/21 13:30 [place] % (Auto) 9.2 % (0.0-13.0) 06/21/21 13:30 Eos % (Auto) 1.6 % (0.9-2.9) 06/21/21 13:30 Baso % (Auto) 0.6 % (0.2-1.0) 06/21/21 13:30 Neut # (Auto) 4.1 x10^3/uL (2.2-4.8) 06/21/21 13:30 Lymph # (Auto) 2.6 X10^3/uL (1.3-2.9) 06/21/21 13:30 [place] # (Auto) 0.7 x10^3/uL (0.3-0.8) 06/21/21 13:30 Eos # (Auto) 0.1 x10^3/uL (0.0-0.2) 06/21/21 13:30 Baso # (Auto) 0.0 X10^3/uL (0.0-0.1) 06/21/21 13:30 Absolute Nucleated RBC 0.1 /100WBC 06/21/21 13:30 Sodium 135 mmol/L (136-145) L 06/21/21 13:30 Corrected Sodium 140 mmol/L (136-145) 06/21/21 13:30 Potassium 4.1 mmol/L (3.5-5.1) 06/21/21 13:30 Chloride 101 mmol/L (98-107) 06/21/21 13:30 Carbon Dioxide 22.6 mmol/L (21-32) 06/21/21 13:30 BUN 9 mg/dL (7-18) 06/21/21 13:30 Creatinine 1.02 mg/dL (0.55-1.02) 06/21/21 13:30 Est GFR (MDRD) Af Amer > 60 (>60) 06/21/21 13:30 Est GFR (MDRD) Non-Af > 60 (>60) 06/21/21 13:30 Glucose 323 mg/dL (65-99) H 06/21/21 13:30 POC Glucose (mg/dL) 196 mg/dL (65-99) H 06/22/21 12:40 Calcium 8.4 mg/dL (8.5-10.1) L 06/21/21 13:30 Corrected Calcium 9.2 mg/dL (8.5-10.1) 06/21/21 13:30 Total Bilirubin 0.50 mg/dL (0.2-1.0) 06/21/21 13:30 AST 42 Units/L (15-37) H 06/21/21 13:30 ALT 39 Units/L (12-78) 06/21/21 13:30 Alkaline Phosphatase 107 Units/L (46-116) 06/21/21 13:30 Creatine Kinase 918 Units/L (26-192) H 06/21/21 15:54 CK-MB (CK-2) < 1.0 ng/mL (0-4.0) 06/21/21 15:54 CK/CKMB % Calc 0.1 % (<4) 06/21/21 15:54 Troponin I High Sens 11.5 ng/L (4.0-60.0) 06/21/21 15:54 Total Protein 7.4 g/dL (6.4-8.2) 06/21/21 13:30 Albumin 3.0 g/dL (3.4-5.0) L 06/21/21 13:30 Globulin 4.4 g/dL (2.5-4.5) 06/21/21 13:30 Albumin/Globulin Ratio 0.7 Ratio (1.1-2.1) L 06/21/21 13:30 SARS CoV-2 RNA Rapid [place] Negative (NEGATIVE) 06/21/21 17:47 Review of Systems Constitutional: Weakness Eyes: No Symptoms Reported ENT: No Symptoms Reported Respiratory: No Symptoms Reported Cardiovascular: No Symptoms Reported Gastrointestinal: No Symptoms Reported Genitourinary: No Symptoms Reported Musculoskeletal: No Symptoms Reported Skin: No Symptoms Reported Neurological: No Symptoms Reported Physical Exam Vital Signs: Temperature 98.3 F Pulse Rate [Left] 85 Pulse Rate 83 Respiratory Rate 20 Blood Pressure [Right Arm] 140/81 Blood Pressure 138/79 O2 Sat by Pulse Oximetry 100 Oriented: Normal, Time, Person and Place Eyes: Normal Ear: Normal Nose: Normal Throat: Normal Respiratory: Clear Throughout Cardiovascular: Normal : Normal Auscultation: Bowel Sounds: Normal Palpation: Normal Tenderness: Normal Skin: Normal Musculoskeletal: Normal Psychiatric: Normal Mood Description: Calm Affect: Normal Speech Pattern: Clear and Appropriate Assessment/Plan (1) Diabetes mellitus: Status: Acute Plan: Increase metformin to 1000 mg by mouth twice a day from 500 mg by mouth twice a day. Also cover the patient with Lantus at this time. (2) Rhabdomyolysis: Qualifiers: Rhabdomyolysis type: non-traumatic Qualified Code(s): M62.82 - Rhabdomyolysis Status: Acute Plan: IV hydration. Recheck CK in the morning. Review H&P Reviewed: Yes Patient was examined?: Yes
--- NOTE | 2021-06-22 15:54 | PCM.PROG ---
Progress Note Progress Note for Day of Date of Exam: 06/22/21 Subjective Subjective: The patient reports that she feels better this morning. Her blood sugar is down with numbers in the 190s. We will continue her IV fluid and check a CK level this morning to see if her rhabdomyolysis is also resolving. Patient should be able to be discharged home tomorrow morning. Past Medical Family Social History Past Med/Fam/Surg Hx: No changes since H&P Allergies: Allergies carbinoxamine [From [facility]] Allergy (Verified 03/25/19 17:27) [facility] Allergy (Verified 03/25/19 17:27) Review of Systems ROS: No change since H&P Vital Signs and I&O's Vital Signs: Temperature 98.3 F Pulse Rate [Left] 85 Pulse Rate 83 Respiratory Rate 20 Blood Pressure [Right Arm] 140/81 Blood Pressure 138/79 O2 Sat by Pulse Oximetry 100 Intake and Output: Intake & Output 06/20/21 06/21/21 06/22/21 06/23/21 11:59 11:59 11:59 11:59 Intake Total 1700 / 1700 Balance 1700 / 1700 Physical Exam Oriented: Normal, Time, Person and Place Eyes: Normal Ear: Normal Nose: Normal Throat: Normal Cardiovascular: Normal : Normal Auscultation: Bowel Sounds: Normal Tenderness: Normal Skin: Normal Musculoskeletal: Normal Psychiatric: Normal Mood Description: Calm Affect: Normal Speech Pattern: Clear and Appropriate Laboratory and Diagnostics Result Diagrams: 06/21/21 13:30 06/21/21 13:30 Labs: Laboratory WBC 7.6 X10^3/uL (3.6-10.0) 06/21/21 13:30 RBC 5.31 X10^6/uL (3.5-5.4) 06/21/21 13:30 Hgb 13.8 g/dL (12.0-16.0) 06/21/21 13:30 Hct 41.7 % (36.0-47.0) 06/21/21 13:30 MCV 78.7 fL (80.0-100.0) L 06/21/21 13:30 MCH 25.9 pg (27.0-34.0) L 06/21/21 13:30 MCHC 32.9 g/dL (33.0-35.0) L 06/21/21 13:30 RDW 15.7 % (11.6-16.5) 06/21/21 13:30 Plt Count 246 X10^3/uL (150.0-450.0) 06/21/21 13:30 MPV 9.7 fL (7.4-11.0) 06/21/21 13:30 Neut % (Auto) 54.2 % (42.0-75.0) 06/21/21 13:30 Lymph % (Auto) 34.4 % (21.0-51.0) 06/21/21 13:30 [place] % (Auto) 9.2 % (0.0-13.0) 06/21/21 13:30 Eos % (Auto) 1.6 % (0.9-2.9) 06/21/21 13:30 Baso % (Auto) 0.6 % (0.2-1.0) 06/21/21 13:30 Neut # (Auto) 4.1 x10^3/uL (2.2-4.8) 06/21/21 13:30 Lymph # (Auto) 2.6 X10^3/uL (1.3-2.9) 06/21/21 13:30 [place] # (Auto) 0.7 x10^3/uL (0.3-0.8) 06/21/21 13:30 Eos # (Auto) 0.1 x10^3/uL (0.0-0.2) 06/21/21 13:30 Baso # (Auto) 0.0 X10^3/uL (0.0-0.1) 06/21/21 13:30 Absolute Nucleated RBC 0.1 /100WBC 06/21/21 13:30 Sodium 135 mmol/L (136-145) L 06/21/21 13:30 Corrected Sodium 140 mmol/L (136-145) 06/21/21 13:30 Potassium 4.1 mmol/L (3.5-5.1) 06/21/21 13:30 Chloride 101 mmol/L (98-107) 06/21/21 13:30 Carbon Dioxide 22.6 mmol/L (21-32) 06/21/21 13:30 BUN 9 mg/dL (7-18) 06/21/21 13:30 Creatinine 1.02 mg/dL (0.55-1.02) 06/21/21 13:30 Est GFR (MDRD) Af Amer > 60 (>60) 06/21/21 13:30 Est GFR (MDRD) Non-Af > 60 (>60) 06/21/21 13:30 Glucose 323 mg/dL (65-99) H 06/21/21 13:30 POC Glucose (mg/dL) 196 mg/dL (65-99) H 06/22/21 12:40 Calcium 8.4 mg/dL (8.5-10.1) L 06/21/21 13:30 Corrected Calcium 9.2 mg/dL (8.5-10.1) 06/21/21 13:30 Total Bilirubin 0.50 mg/dL (0.2-1.0) 06/21/21 13:30 AST 42 Units/L (15-37) H 06/21/21 13:30 ALT 39 Units/L (12-78) 06/21/21 13:30 Alkaline Phosphatase 107 Units/L (46-116) 06/21/21 13:30 Creatine Kinase 918 Units/L (26-192) H 06/21/21 15:54 CK-MB (CK-2) < 1.0 ng/mL (0-4.0) 06/21/21 15:54 CK/CKMB % Calc 0.1 % (<4) 06/21/21 15:54 Troponin I High Sens 11.5 ng/L (4.0-60.0) 06/21/21 15:54 Total Protein 7.4 g/dL (6.4-8.2) 06/21/21 13:30 Albumin 3.0 g/dL (3.4-5.0) L 06/21/21 13:30 Globulin 4.4 g/dL (2.5-4.5) 06/21/21 13:30 Albumin/Globulin Ratio 0.7 Ratio (1.1-2.1) L 06/21/21 13:30 SARS CoV-2 RNA Rapid [place] Negative (NEGATIVE) 06/21/21 17:47 EKG Reviewed: Yes Plan (1) Diabetes mellitus: Status: Acute Plan: Increase metformin to 1000 mg by mouth twice a day from 500 mg by mouth twice a day. Also cover the patient with Lantus at this time. (2) Rhabdomyolysis: Status: Acute Qualifiers: Rhabdomyolysis type: non-traumatic Qualified Code(s): M62.82 - Rhabdomyolysis Plan: IV hydration. Recheck CK in the morning.
[2021-06-22] MEDS: NS 1,000 ML IV 1,000 ML IV SCH (17:31)
[2021-06-22] MEDS: LANTUS SC SCH (23:35)
[2021-06-22] MEDS: SNACK - Diabetic Appropriate PO SCH (23:35)
[2021-06-23] MEDS: NS 1,000 ML IV 1,000 ML IV SCH ×4 (01:05→19:04)
[2021-06-23] MEDS ORDERED: GLUCOPHAGE ONE ×2 (05:08→17:33)
[2021-06-23 05:17] LABS: BASOPHILS # (AUTO) 0.1 X10^3/uL (0.0-0.1); EOSINOPHILS # (AUTO) 0.2 x10^3/uL (0.0-0.2); EOSINOPHILS % (AUTO) 2.3 % (0.9-2.9); HEMATOCRIT 36.5 % (36.0-47.0); HEMOGLOBIN 12.1 g/dL (12.0-16.0); LYMPHOCYTES # (AUTO) 2.8 X10^3/uL (1.3-2.9); LYMPHOCYTES % (AUTO) 39.3 % (21.0-51.0); MEAN CORPUSCULAR HEMOGLOBIN 25.7 pg (27.0-34.0); MEAN CORPUSCULAR VOLUME 77.9 fL (80.0-100.0); MEAN PLATELET VOLUME 9.4 fL (7.4-11.0); MONOCYTES # (AUTO) 0.7 x10^3/uL (0.3-0.8); MONOCYTES % (AUTO) 9.5 % (0.0-13.0); NEUTROPHILS # (AUTO) 3.4 x10^3/uL (2.2-4.8); NEUTROPHILS % (AUTO) 47.9 % (42.0-75.0); RED BLOOD COUNT 4.69 X10^6/uL (3.5-5.4); RED CELL DISTRIBUTION WIDTH 15.8 % (11.6-16.5)
[2021-06-23 05:38] LABS: ALANINE AMINOTRANSFERASE 32 Units/L (12-78); ALBUMIN 2.5 g/dL (3.4-5.0); ALKALINE PHOSPHATASE 93 Units/L (46-116); ASPARTATE AMINO TRANSFERASE 29 Units/L (15-37); BLOOD UREA NITROGEN 10 mg/dL (7-18); CALCIUM 7.8 mg/dL (8.5-10.1); CARBON DIOXIDE 21.8 mmol/L (21-32); CHLORIDE 100 mmol/L (98-107); COR NA(FOR HYPERGLY) 138 mmol/L (136-145); CREATINE KINASE 579 Units/L (26-192); CREATININE 0.78 mg/dL (0.55-1.02); SODIUM 134 mmol/L (136-145); TOTAL PROTEIN 6.3 g/dL (6.4-8.2); eGFR NON BLACK RACES > 60 (>60)
[2021-06-23] MEDS: GLUCOPHAGE PO SCH ×2 (06:04→17:31)
[2021-06-23] MEDS: NovoLIN R (or HumuLIN R) SC PRN ×2 (06:05→17:30)
[2021-06-23] MEDS ORDERED: FIORICET TAB PO PRN (10:51)
[2021-06-23] MEDS: AMARYL TAB 4 MG PO SCH (13:13)
[2021-06-23] MEDS: PEPCID TAB 40 MG PO SCH ×2 (13:13→21:06)
[2021-06-23] MEDS ORDERED: SNACK - Diabetic Appropriate PO SCH (20:00)
[2021-06-23] MEDS: LANTUS SC SCH (21:06)
[2021-06-24] MEDS: NS 1,000 ML IV 1,000 ML IV SCH (01:26)
[2021-06-24] MEDS ORDERED: GLUCOPHAGE ONE (04:33)
[2021-06-24 05:14] LABS: BASOPHILS # (AUTO) 0.1 X10^3/uL (0.0-0.1); EOSINOPHILS # (AUTO) 0.1 x10^3/uL (0.0-0.2); EOSINOPHILS % (AUTO) 2.2 % (0.9-2.9); HEMATOCRIT 34.6 % (36.0-47.0); HEMOGLOBIN 11.4 g/dL (12.0-16.0); LYMPHOCYTES # (AUTO) 2.3 X10^3/uL (1.3-2.9); LYMPHOCYTES % (AUTO) 38.6 % (21.0-51.0); MEAN CORPUSCULAR HEMOGLOBIN 25.8 pg (27.0-34.0); MEAN CORPUSCULAR HGB CONC 32.9 g/dL (33.0-35.0); MEAN CORPUSCULAR VOLUME 78.4 fL (80.0-100.0); MEAN PLATELET VOLUME 8.8 fL (7.4-11.0); MONOCYTES # (AUTO) 0.6 x10^3/uL (0.3-0.8); MONOCYTES % (AUTO) 9.5 % (0.0-13.0); NEUTROPHILS # (AUTO) 2.9 x10^3/uL (2.2-4.8); NEUTROPHILS % (AUTO) 48.7 % (42.0-75.0); RED BLOOD COUNT 4.42 X10^6/uL (3.5-5.4); RED CELL DISTRIBUTION WIDTH 15.8 % (11.6-16.5)
[2021-06-24 05:30] LABS: ALANINE AMINOTRANSFERASE 32 Units/L (12-78); ALBUMIN 2.4 g/dL (3.4-5.0); ALKALINE PHOSPHATASE 79 Units/L (46-116); ASPARTATE AMINO TRANSFERASE 34 Units/L (15-37); BLOOD UREA NITROGEN 6 mg/dL (7-18); CALCIUM 7.6 mg/dL (8.5-10.1); CARBON DIOXIDE 23.8 mmol/L (21-32); CHLORIDE 103 mmol/L (98-107); COR CA(FOR HYPOALB) 8.9 mg/dL (8.5-10.1); COR NA(FOR HYPERGLY) 139 mmol/L (136-145); CREATININE 0.74 mg/dL (0.55-1.02); SODIUM 136 mmol/L (136-145); TOTAL PROTEIN 5.9 g/dL (6.4-8.2); eGFR NON BLACK RACES > 60 (>60)
[2021-06-24] MEDS ORDERED: POTASSIUM CHL 40 MEQ/NS 0.45% 500 ML IV PRN (05:58)
[2021-06-24] MEDS ORDERED: POTASSIUM CHLORIDE LIQ 20 MEQ UDC PO PRN (05:58)
[2021-06-24] MEDS ORDERED: KLOR-CON PO PRN (05:58)
[2021-06-24] MEDS ORDERED: POTASSIUM CHL 60 MEQ/NS 0.45% 500 ML IV PRN (05:58)
[2021-06-24] MEDS ORDERED: K-DUR TAB 20 MEQ PO PRN (05:58)
[2021-06-24] MEDS ORDERED: K-RIDER 10 MEQ/NS 100 ML 10 MEQ/100 ML BAG IV PRN (05:58)
[2021-06-24] MEDS ORDERED: MICRO K EXTEN CAP 10 MEQ PO PRN (05:58)
[2021-06-24] MEDS: GLUCOPHAGE PO SCH (06:04)
[2021-06-24] MEDS: PEPCID TAB 40 MG PO SCH (09:14)
[2021-06-24] MEDS: AMARYL TAB 4 MG PO SCH (09:14)
[2021-06-24] MEDS: MAGNESIUM SULFATE 1 GRAM/100 mL PREMIX 1 G/100 ML BAG IV PRN ×2 (09:26→10:53)
[2021-06-24] MEDS ORDERED: ACTOS PO SCH (09:45)
[2021-06-24] MEDS ORDERED: INVOKANA PO SCH (10:00)
[2021-06-24 12:19] VITALS: BP 116/54
[2021-06-24] MEDS ORDERED: LANTUS SC SCH (21:00)
--- NOTE | 2021-09-02 17:59 | PCM.PROG ---
Progress Note - Progress Note for Day of Date of Exam: 06/23/21 - Subjective Subjective: WAS ADMITTED OBSERVATION STATUS FOR TREATMENT OF RHABDOMYOLYSIS, DEHYDRATION, UNCONTROLLED DM II. TODAY, SHE IS ALERT AND ORIENTED, LYING IN BED ON MORNING ROUNDS. SHE REPORTS GENERALIZED WEAKNESS THIS MORNING. HER BLOOD SUGAR ON ADMISSION WAS GREATER THAN 300. LANTUS WAS ADDED ON ADMISSION AND HER METFORMIN WAS INCREASED TO 300MG BID. ON EXAMINATION, HEART IS REGULAR IN RATE AND RHYTHM. BILATERAL LUNGS ARE CLEAR TO AUSCULTATION. ABDOMEN IS OBESE, SOFT, AND NON-TENDER WITH NORMAL BOWEL SOUNDS NOTED IN ALL QUADRANTS. HER VITALS THIS MORNING ARE: 97.8-86-20-99%-127/75. LABS WERE OBTAINED. WBC 7.0, RBC 4.69, HGB 12.1, HCT 36.5, SODIUM 134, POTASSIUM 3.4, BUN 10, CREATININE 0.78, GLUCOSE 273, CALCIUM 7.8, AST 29, ALT 32, ALK PHOS 93, CREATINE KINASE 579, TOTAL PROTEIN 6.3, ALBUMIN 2.5. BLOOD GLUCOSE LEVELS THROUGHOUT THE NIGHT AND YESTERDAY AFTERNOON HAVE BEEN BELOW 250. WE WILL CONTINUE HER IV FLUIDS, LANTUS, HUMULIN R SLIDING SCALE, METFORMIN, GLIMEPIRIDE, AND CURRENT PLAN OF CARE TODAY. OTHERWISE, WE PLAN TO FOLLOW-UP WITH AM LABS AND CONTINUE TO MONITOR. TIME SPENT ON CLINICAL ASSESSMENT, REVIEWING LABS AND IMAGING, DECISION MAKING, AND DOCUMENTATION GREATER THAN 45 MINUTES. - Past Medical Family Social History Past Med/Fam/Surg Hx: No changes since H&P Allergies: Allergies carbinoxamine [From [facility]] Allergy (Verified 03/25/19 17:27) pseudoephedrine [From [facility]] Allergy (Verified 03/25/19 17:27) - Review of Systems ROS: No change since H&P - Vital Signs and I&O's Vital Signs: Temperature 98.4 F Pulse Rate [Left] 88 Pulse Rate 83 Respiratory Rate 20 Blood Pressure [Right Arm] 116/54 Blood Pressure 138/79 O2 Sat by Pulse Oximetry 98 - Physical Exam Oriented: Normal, Time, Person, Place Eyes: Normal Ear: Normal Nose: Normal Throat: Normal Cardiovascular: Normal : Normal Auscultation: Bowel Sounds: Normal Tenderness: Normal Skin: Normal Musculoskeletal: Normal Psychiatric: Normal Mood Description: Calm Affect: Normal Speech Pattern: Clear, Appropriate - Laboratory and Diagnostics Result Diagrams: 06/24/21 05:00 06/24/21 05:00 Labs: Laboratory WBC 6.0 X10^3/uL (3.6-10.0) 06/24/21 05:00 RBC 4.42 X10^6/uL (3.5-5.4) 06/24/21 05:00 Hgb 11.4 g/dL (12.0-16.0) L 06/24/21 05:00 Hct 34.6 % (36.0-47.0) L 06/24/21 05:00 MCV 78.4 fL (80.0-100.0) L 06/24/21 05:00 MCH 25.8 pg (27.0-34.0) L 06/24/21 05:00 MCHC 32.9 g/dL (33.0-35.0) L 06/24/21 05:00 RDW 15.8 % (11.6-16.5) 06/24/21 05:00 Plt Count 249 X10^3/uL (150.0-450.0) 06/24/21 05:00 MPV 8.8 fL (7.4-11.0) 06/24/21 05:00 Neut % (Auto) 48.7 % (42.0-75.0) 06/24/21 05:00 Lymph % (Auto) 38.6 % (21.0-51.0) 06/24/21 05:00 [place] % (Auto) 9.5 % (0.0-13.0) 06/24/21 05:00 Eos % (Auto) 2.2 % (0.9-2.9) 06/24/21 05:00 Baso % (Auto) 1.0 % (0.2-1.0) 06/24/21 05:00 Neut # (Auto) 2.9 x10^3/uL (2.2-4.8) 06/24/21 05:00 Lymph # (Auto) 2.3 X10^3/uL (1.3-2.9) 06/24/21 05:00 [place] # (Auto) 0.6 x10^3/uL (0.3-0.8) 06/24/21 05:00 Eos # (Auto) 0.1 x10^3/uL (0.0-0.2) 06/24/21 05:00 Baso # (Auto) 0.1 X10^3/uL (0.0-0.1) 06/24/21 05:00 Absolute Nucleated RBC 0.1 /100WBC 06/24/21 05:00 Sodium 136 mmol/L (136-145) 06/24/21 05:00 Corrected Sodium 139 mmol/L (136-145) 06/24/21 05:00 Potassium 3.3 mmol/L (3.5-5.1) L 06/24/21 05:00 Chloride 103 mmol/L (98-107) 06/24/21 05:00 Carbon Dioxide 23.8 mmol/L (21-32) 06/24/21 05:00 BUN 6 mg/dL (7-18) L 06/24/21 05:00 Creatinine 0.74 mg/dL (0.55-1.02) 06/24/21 05:00 Est GFR (MDRD) Af Amer > 60 (>60) 06/24/21 05:00 Est GFR (MDRD) Non-Af > 60 (>60) 06/24/21 05:00 Glucose 239 mg/dL (65-99) H 06/24/21 05:00 POC Glucose (mg/dL) 209 mg/dL (65-99) H 06/24/21 11:36 Calcium 7.6 mg/dL (8.5-10.1) L 06/24/21 05:00 Corrected Calcium 8.9 mg/dL (8.5-10.1) 06/24/21 05:00 Magnesium 1.4 mg/dL (1.7-2.9) L 06/24/21 05:00 Total Bilirubin 0.40 mg/dL (0.2-1.0) 06/24/21 05:00 AST 34 Units/L (15-37) 06/24/21 05:00 ALT 32 Units/L (12-78) 06/24/21 05:00 Alkaline Phosphatase 79 Units/L (46-116) 06/24/21 05:00 Creatine Kinase 579 Units/L (26-192) H 06/23/21 04:34 CK-MB (CK-2) < 1.0 ng/mL (0-4.0) 06/21/21 15:54 CK/CKMB % Calc 0.1 % (<4) 06/21/21 15:54 Troponin I High Sens 11.5 ng/L (4.0-60.0) 06/21/21 15:54 Total Protein 5.9 g/dL (6.4-8.2) L 06/24/21 05:00 Albumin 2.4 g/dL (3.4-5.0) L 06/24/21 05:00 Globulin 3.5 g/dL (2.5-4.5) 06/24/21 05:00 Albumin/Globulin Ratio 0.7 Ratio (1.1-2.1) L 06/24/21 05:00 SARS CoV-2 RNA Rapid [place] Negative (NEGATIVE) 06/21/21 17:47 - Plan (1) Rhabdomyolysis Status: Acute Qualifiers: Rhabdomyolysis type: non-traumatic Qualified Code(s): M62.82 - Rhabdomyolysis Plan: IV hydration. Recheck CK in the morning. (2) Dehydration Status: Acute (3) Diabetes mellitus Status: Chronic Qualifiers: Diabetes mellitus type: type 2 Diabetes mellitus watermaster insulin use: unspecified mcfp insulin use status Diabetes mellitus complication status: with hyperglycemia Qualified Code(s): E11.65 - Type 2 diabetes mellitus with hyperglycemia
== END 2021-06-24 14:20 | disposition home or self-care (01) ==
LOC: ER 13:03 → MED/SURG 13:03
PROVIDERS: ADMIT Family Medicine; ATTEND Obstetrics & Gynecology Obstetrics